=== PATIENT | female | born 1955 ===

== ENCOUNTER 2021-06-02 13:11 | Outpatient (CLI) | payer OTHER ==
[~2021-06-02 13:11] MED LIST: AVAPRO300 MG PO; EFFEXOR XR75 MG PO; XANAX0.25 MG
== END 2021-06-02 13:21 | disposition home or self-care (01) ==
LOC: SONOGRAMA 13:11
DX: R22.32 Localized swelling, mass and lump, left upper limb (principal); D49.2 Neoplasm of unspecified behavior of bone, soft tissue, and skin

== ENCOUNTER 2021-06-09 07:37 | Outpatient (CLI) | payer OTHER | END 2021-06-09 07:41 | disposition home or self-care (01) | LOC: SONOGRAMA 07:37 | DX: M25.512 Pain in left shoulder (principal) ==

== ENCOUNTER 2025-04-15 14:16 | Outpatient (CLI) | payer OTHER | END 2025-04-15 14:23 | disposition home or self-care (01) | LOC: RAD 14:16 | PROVIDERS: ATTEND General Practice | DX: R91.1 Solitary pulmonary nodule (principal) ==

== ENCOUNTER 2025-05-06 07:26 | Outpatient (CLI) | payer OTHER | END 2025-05-06 07:37 | disposition home or self-care (01) | LOC: TOM 07:26 | PROVIDERS: ATTEND Surgery | DX: R10.84 Generalized abdominal pain (principal) ==